=== PATIENT | male | born 1970 | race Caucasian/White ===

== ENCOUNTER 2018-03-17 00:51 | Emergency (ER) | payer BC ==
[~2018-03-17] VITALS: Ht 177.8 cm; Wt 88.0 kg
[~2018-03-17 00:51] MED LIST: ASPIR 8181 M1; AUGMENTIN 875875 MG; HYDROCODONE-APA1 TA1 PO; LOPRESSOR25; PERCOCET PO; VENTOLIN HFA 1818 GM INH; ZOFRAN ODT4 MG PO
[2018-03-17] MEDS ORDERED: HYDROCHLOROTHIA25 M2 (00:59)
[2018-03-17] MEDS ORDERED: NEURONTIN 300300 M1 (01:00)
[2018-03-17 01:15] LABS: ABSOLUTE BASOPHILS 0.2 thou/uL (0.0-0.2); ABSOLUTE EOSINOPHILS 0.5 thou/uL (0.0-0.7); ABSOLUTE LYMPHOCYTES 2.9 thou/uL (0.8-5.3); ABSOLUTE NEUTROPHILS 3.7 thou/uL (1.6-8.1); BASOPHILS 2.3 %; EOSINOPHILS 5.5 %; HEMATOCRIT 43.9 % (42.0-52.0); LYMPHOCYTES 35.1 %; MCH 33.4 pg (26.0-34.0); MCHC 34.2 g/dL (28.0-37.0); MCV 97.7 fL (80.0-100.0); MONOCYTES 12.4 %; MPV 8.2 fl. (7.2-11.1); NUCLEATED RBCS 0 /100WBC; PLATELET COUNT* 189 thou/uL (150-400); POLYS 44.7 %; RBC 4.49 mil/uL (4.50-6.00); RDW-CV 13.4 % (10.5-14.5); WBC 8.2 thou/uL (4.0-11.0)
[2018-03-17 01:23] LABS: ANION GAP 10 mmol/L (7-16); BUN 8 mg/dL (7-18); CALCIUM 8.7 mg/dL (8.5-10.1); CHLORIDE 95 mmol/L (98-107); CO2 29 mmol/L (21-32); CREATININE 0.9 mg/dL (0.6-1.3); GLUCOSE 94 mg/dL (70-99); POTASSIUM 3.3 mmol/L (3.5-5.1); SODIUM 134 mmol/L (136-145)
[2018-03-17 01:30] LABS: INR 1.1; PROTIME 10.3 Seconds (9.20-11.50)
[2018-03-17 01:43] LABS: ALBUMIN 3.8 g/dL (3.4-5.0); ALKALINE PHOSPHATASE 40 U/L (46-116); CK-MB MASS 0.6 ng/mL (<0.5-3.6); LIPASE 159 U/L (73-393); NT-PRO BRAIN NAT PEPTIDE 120 pg/mL (<300); SGOT 39 U/L (15-37); SGPT 52 U/L (30-65); TOTAL BILIRUBIN 0.4 mg/dL (<0.1-1.0); TOTAL PROTEIN 7.7 g/dL (6.4-8.2); TROPONIN-I LEVEL <0.06 ng/mL (<0.06)
[2018-03-17 01:56] LABS: APTT 26.2 Seconds (25.0-31.3)
[2018-03-17 02:15] VITALS: BP 121/77
--- NOTE | 2018-03-17 10:12 | EKG ---
[place] [address] ELECTROCARDIOGRAM REPORT Name: FRANCOIS MILES Room: [facility]#: [id number] Admission: 03/17/18 Attend Phys: Discharge: 03/17/18 Date of : 66 Report #: [id number] THIS REPORT FOR: //name// [facility] ED Test Date: 2018-03-17 Test Time: 00:57:25 Pat Name: FRANCOIS MILES Department: Room: Gender: M Interactive Media Designer: NED : 1970 Requested By: Kiel Tijerina Order Number: [id number] MD: Demetrius Mcknight Measurements Intervals [place] Rate: 70 P: 74 CT: 145 QRS: 46 QRSD: 99 T: 62 QT: 401 QTc: 433 Interpretive Statements Sinus rhythm LAE, consider biatrial enlargement septal infarct, age indeterminate Artifact in lead(s) I,II,III,aVR,aVL,aVF,V1,V2 Compared to ECG 01/17/2016 04:07:53 Myocardial infarct finding now present Sinus arrhythmia no longer present Electronically Signed On 03-17-2018 10:12:10 CDT by Demetrius Mcknight [email or web address] <ELECTRONICALLY SIGNED> By: Demetrius Mcknight MD, [facility] 03/17/18 1012 0057 [id number] Demetrius Mcknight MD, [facility] /EPI
== END 2018-03-17 02:15 | disposition home or self-care (01) ==
LOC: M.ERS 00:51
PROVIDERS: Family Medicine
DX: R06.00 Dyspnea, unspecified (principal); I10 Essential (primary) hypertension; Z90.49 Acquired absence of other specified parts of digestive tract; Z86.73 Personal history of transient ischemic attack (TIA), and cerebral infarction without residual deficits; Z88.0 Allergy status to penicillin